=== PATIENT | female | born 1980 ===

== ENCOUNTER 2022-08-01 10:05 | Outpatient (CLI) | payer OTHER | END 2022-08-01 12:00 | disposition home or self-care (01) | LOC: PRENATAL 10:05 | PROVIDERS: ATTEND Obstetrics & Gynecology Maternal & Fetal Medicine | DX: O36.80X0 Pregnancy with inconclusive fetal viability, not applicable or unspecified (principal); O09.529 Supervision of elderly multigravida, unspecified trimester; O34.90 Maternal care for abnormality of pelvic organ, unspecified, unspecified trimester; Z3A.11 11 weeks gestation of pregnancy ==

== ENCOUNTER 2022-10-06 12:53 | Outpatient (CLI) | payer OTHER | END 2022-10-06 14:25 | disposition home or self-care (01) | LOC: PRENATAL 12:53 | PROVIDERS: ATTEND Obstetrics & Gynecology Maternal & Fetal Medicine | DX: O35.9XX0 Maternal care for (suspected) fetal abnormality and damage, unspecified, not applicable or unspecified (principal); O35.3XX0 Maternal care for (suspected) damage to fetus from viral disease in mother, not applicable or unspecified; O09.529 Supervision of elderly multigravida, unspecified trimester; O34.30 Maternal care for cervical incompetence, unspecified trimester; Z3A.19 19 weeks gestation of pregnancy ==

== ENCOUNTER 2022-12-02 13:52 | Outpatient (CLI) | payer OTHER | END 2022-12-02 16:04 | disposition home or self-care (01) | LOC: PRENATAL 13:52 | PROVIDERS: ATTEND Obstetrics & Gynecology Maternal & Fetal Medicine | DX: O26.849 Uterine size-date discrepancy, unspecified trimester (principal); O09.529 Supervision of elderly multigravida, unspecified trimester; O34.30 Maternal care for cervical incompetence, unspecified trimester; Z3A.28 28 weeks gestation of pregnancy ==

== ENCOUNTER 2023-01-08 13:46 | Outpatient (CLI) | payer OTHER | END 2023-01-08 17:44 | disposition home or self-care (01) | LOC: PRENATAL 13:46 | PROVIDERS: ATTEND Obstetrics & Gynecology Maternal & Fetal Medicine | DX: O26.849 Uterine size-date discrepancy, unspecified trimester (principal); O36.8199 Decreased fetal movements, unspecified trimester, other fetus; O09.529 Supervision of elderly multigravida, unspecified trimester; O36.5990 Maternal care for other known or suspected poor fetal growth, unspecified trimester, not applicable or unspecified; Z3A.34 34 weeks gestation of pregnancy ==